=== PATIENT | female | born 1955 | race Caucasian/White ===

== ENCOUNTER 2017-09-27 08:14 | Day surgery (SDC) | payer OTHER ==
[2017-09-27] MEDS ORDERED: PROPOFOL 40 ML (09:46)
== END 2017-09-27 12:59 | disposition home or self-care (01) ==
LOC: GIL 08:14
DX: Z12.11 Encounter for screening for malignant neoplasm of colon (principal); K62.1 Rectal polyp; E11.9 Type 2 diabetes mellitus without complications; E78.5 Hyperlipidemia, unspecified; E66.01 Morbid (severe) obesity due to excess calories; Z68.39 Body mass index [BMI] 39.0-39.9, adult
CPT/HCPCS: 45380; 82962; 88305